=== PATIENT | female | born 1980 | race Caucasian/White ===

== ENCOUNTER 2017-11-22 15:42 | Emergency (ER) | payer OTHER ==
[2017-11-22 16:21] VITALS: BP 121/72
--- NOTE | 2017-11-22 16:37 | UC ---
Bite Injury/Animal HPI - HPI Summary HPI Summary: 37 yo female presents with R thumb cat bite. + feral cat, now in long-term. She has not had rabies series. Last tet booster 2015. Bite distal phalanx R thumb. No fever. Able to move thumb ok. No purulence. Occurred today at work approx 14:00. - History of Current Complaint Chief Complaint: UCBiteInjury Stated Complaint: CAT BITE Time Seen by Provider: 11/22/17 16:36 Hx Obtained From: Patient Hx Last Menstrual Period: 2 weeks ago Pain Intensity: 0 Type of Bite: Animal - see hpi Has Animal Been Immunized?: Unknown - Allergies/Home Medications Allergies/Adverse Reactions: Allergies Allergy/AdvReac Type Severity Reaction Status Date / Time No Known Allergies Allergy Verified 11/22/17 16:16 PMH/Surg Hx/FS Hx/Imm Hx Previously Healthy: Yes - Surgical History Surgical History: None Surgery Procedure, Year, and Place: denies - Social History Alcohol Use: Occasionally Substance Use Type: None Smoking Status (MU): Never Smoked Tobacco - Immunization History Most Recent Tetanus Shot: August 2015 Review of Systems Constitutional: Negative Skin: Other - see hpi Eyes: Negative ENT: Negative Respiratory: Negative Cardiovascular: Negative Gastrointestinal: Negative Genitourinary: Negative Motor: Negative Neurovascular: Negative Musculoskeletal: Negative Neurological: Negative Psychological: Negative Is Patient Immunocompromised?: No All Other Systems Reviewed And Are Negative: Yes Physical Exam Triage Information Reviewed: Yes Appearance: Well-Appearing, Well-Nourished Vital Signs: Initial Vital Signs Temp 98.5 F 11/22/17 16:15 Pulse 73 11/22/17 16:15 Resp 18 11/22/17 16:15 BP 121/72 11/22/17 16:15 Pulse Ox 100 11/22/17 16:15 Vital Signs Reviewed: Yes Eye Exam: Normal - grossly normal ENT Exam: Normal - grossly normal Neck exam: Normal - grossly normal Respiratory Exam: Normal - no tachypnea, no dyspnea. RR normal. Cardiovascular Exam: Normal - HR normal. Good cap refill. Abdominal Exam: Normal Abdomen Description: Positive: Nontender Musculoskeletal Exam: Normal - grossly normal. See "skin" re thumb bite Neurological Exam: Normal - grossly nonfocal. Re R thumb - + distal LT sensation present. CR good. Psychological Exam: Normal - conversing easily and appropriately Skin Exam: Normal, Other - good general color, nondiaphoretic. R thumb noteworthy for thumb pad + eliptical x 2 wounds c/w bite as described. No active bleeding. + some focal bruising. Bite site does disrupt epidermal / dermal barrior, + dried red blood. No savi cellulitis, minimally swollen. FROM. Bite Injury Course/Dx - Course Course Of Treatment: Health Dept notified by myself (16:45) and by RN (16:58), message left with answering service. (Upon chart completion, we have not yet spoken with HD. Pt is aware that she will be called back if further tx / testing indicated. The animal currently is in quarantine. Tet immun status utd (2016). Augmentin started here since she will not be able to get home for another couple hours, will product picker script from pharmacy. Questions as posed answered to the best of my ability. - Differential Dx/Diagnosis Provider Diagnoses: Cat bite R thumb Discharge - Sign-Out/Discharge Documenting (check all that apply): Patient Departure All imaging exams completed and their final reports reviewed: No Studies - Discharge Plan Condition: Stable Disposition: HOME Prescriptions: Amoxicillin/Clavulanate TAB* [Augmentin TAB 875*] 875 mg PO BID #13 tab Fluconazole [Diflucan 150 MG (NF)] 150 mg PO DAILY #2 tab Patient Education Materials: Animal Bite (ED) Referrals: Caro PANIAGUA,Caden Bowden [Primary Care Provider] - Additional Instructions: Follow up with your primary care physician, per routine. Seek medical attention immediately (recommend Emergency Department) for worse or new problems in the meantime. Wound care - Gentle wash warm soapy water, avoid astringents (ex avoid rubbing alcohol, hydrogen peroxide) Avoid prolonged use of antibiotic ointment. Light bandage as needed. You will be notified if the Health Department requires further treatment or testing. - Billing Disposition and Condition Condition: STABLE Disposition: Home
[2017-11-22] MEDS ORDERED: Amoxicillin/Clavulanate TAB* 875 MG PO ONE (16:56)
== END 2017-11-22 17:25 | disposition home or self-care (01) ==
LOC: UCEAST 15:42
DX: S61.031A Puncture wound without foreign body of right thumb without damage to nail, initial encounter (principal); W55.01XA Bitten by cat, initial encounter; Y92.9 Unspecified place or not applicable
CPT/HCPCS: 99202; A9270-GY; G0463